=== PATIENT | male | born 1955 | race African-American/Black ===

== ENCOUNTER 2020-03-23 09:20 | Inpatient (IN) | payer BC, MEDICARE, OTHER ==
[~2020-03-23] VITALS: Ht 180.3 cm; Wt 109.0 kg
[2020-03-23] MEDS ORDERED: HYDROmorphone 2 MG/ML, 1ML IVPush PRN (09:30)
[2020-03-23] MEDS ORDERED: SODIUM CHLORIDE FLUSH 10ML SYR IVF ONE (09:30)
[2020-03-23] MEDS ORDERED: ONDANSETRON 2MG/ML, 2ML IVPush ONE (09:30)
[2020-03-23] MEDS ORDERED: SODIUM CHLORIDE 0.9% 1,000ML IVBOLUS ONE (09:30)
[2020-03-23] MEDS ORDERED: ONDANSETRON 2MG/ML, 2ML ONE (09:49)
[2020-03-23] MEDS ORDERED: HYDROmorphone 1 MG/ML, 1ML INJ ONE (09:49)
--- NOTE | 2020-03-23 09:59 | NUR ---
Pt c/o RLQ pain since Sat. Denies N/V/D. Unable to eat or drink. Appears dehydrtaed. Elevated temp, tachycardic. PIV started. Labs sent, CX drawn, pain medication provided. Fluids infusing.
[2020-03-23 10:02] LABS: MICROSCOPIC INDICATED
[2020-03-23 10:05] LABS: BASOPHILS % (AUTO) 0 % (0-1); EOSINOPHILS % (AUTO) 0 % (1-7); LYMPHOCYTES % (AUTO) 7 % (22-44); MEAN CORPUSCULAR HEMOGLOBIN 28.8 pg (27.5-34.5); MEAN CORPUSCULAR HGB CONC 33.5 g/dL (33.2-36.2); MEAN PLATELET VOLUME 8.2 fL (7.4-10.4); MONOCYTES % (AUTO) 9 % (2-9); NEUTROPHILS % (AUTO) 83 % (42-75); PLATELET COUNT 221 x10^3/uL (130-400); RED CELL DISTRIBUTION WIDTH 14.1 % (9.4-14.8)
[2020-03-23 10:06] LABS: ALANINE AMINOTRANSFERASE 40 U/L (12-78); ALBUMIN 3.7 g/dL (3.4-5.0); ANION GAP 9 mmol/L (5-15); CALCIUM 9.1 mg/dL (8.5-10.1); CHLORIDE 105 mmol/L (98-107)
[2020-03-23 10:09] LABS: ALKALINE PHOSPHATASE 97 U/L (45-117); BILIRUBIN,TOTAL 1.2 mg/dL (0.2-1.0); CREATININE 1.59 mg/dL (0.7-1.3); TOTAL PROTEIN 8.3 g/dL (6.4-8.2)
--- NOTE | 2020-03-23 10:13 | NUR ---
Pt placed on NC @ 2L/min post Dilaudid admin for low SpO2
--- NOTE | 2020-03-23 10:15 | NUR ---
Pt to CT
[2020-03-23 10:22] LABS: MD SCAN
[2020-03-23] MEDS ORDERED: OMNIPAQUE 350 MG/ML, 100ML BOTTLE ONE (10:29)
--- NOTE | 2020-03-23 10:38 | NUR ---
Back from CT, pain improved
[2020-03-23] MEDS ORDERED: CEFTRIAXONE PMX 1GM/50ML 50 ML IVPB ONE (11:00)
[2020-03-23] MEDS: PLEASE ENTER ALLERGIES MC SCH ×2 (11:00→19:33)
[2020-03-23] MEDS ORDERED: HYDROmorphone 1 MG/ML, 1ML INJ IVPush PRN (11:00)
[2020-03-23] MEDS ORDERED: CEFTRIAXONE PMX 1GM/50ML 50 ML ONE (11:03)
--- NOTE | 2020-03-23 11:05 | NUR ---
Covid swab by ERP
--- NOTE | 2020-03-23 11:38 | NUR ---
2nd blood CX drawn, ABX infusng
--- NOTE | 2020-03-23 12:45 | NUR ---
Pt resting, no needs at this time
[2020-03-23] MEDS ORDERED: KETOROLAC 30 MG/1 ML IM PRN (13:30)
[2020-03-23] MEDS ORDERED: ONDANSETRON 2MG/ML, 2ML IVPush PRN (13:30)
[2020-03-23] MEDS ORDERED: ONDANSETRON ODT 4 MG PO PRN (13:30)
[2020-03-23] MEDS: CEFTRIAXONE PMX 2GM/50ML 50 ML IVPB SCH (13:30)
[2020-03-23] MEDS: HEPARIN 5,000 UNITS/ML, 1ML SQ SCH ×2 (13:30→17:30)
[2020-03-23] MEDS ORDERED: HEPARIN 5,000 UNITS/ML, 1ML ONE (14:03)
[2020-03-23] MEDS ORDERED: CEFTRIAXONE PMX 2GM/50ML 0 ML ONE (14:03)
--- NOTE | 2020-03-23 14:09 | NUR ---
Pt resting, no needs at this time. Updated on POC.
[2020-03-23 17:01] VITALS: BP 147/83
[2020-03-23] MEDS ORDERED: CEFTRIAXONE PMX 1GM/50ML 50 ML IV ONE (17:30)
[2020-03-23] MEDS: ACETAMINOPHEN 325 MG TABLET PO PRN (17:30)
[2020-03-23] MEDS: SODIUM CHLORIDE 0.9% 1,000 ML IV SCH (17:32)
[2020-03-23 19:28] VITALS: BP 133/79
[2020-03-23] MEDS: KETOROLAC 30 MG/1 ML IVPush PRN (22:37)
[2020-03-24] VITALS (7 sets, daily range): BP systolic 114–173; BP diastolic 56–85
[2020-03-24] MEDS: HEPARIN 5,000 UNITS/ML, 1ML SQ SCH ×3 (02:05→17:47)
[2020-03-24] MEDS: PLEASE ENTER ALLERGIES MC SCH (03:00)
[2020-03-24] MEDS: ACETAMINOPHEN 325 MG TABLET PO PRN ×2 (05:02→21:03)
[2020-03-24] MEDS: SODIUM CHLORIDE 0.9% 1,000 ML IV SCH (07:38)
[2020-03-24 07:39] LABS: BASOPHILS % (AUTO) 1 % (0-1); EOSINOPHILS % (AUTO) 0 % (1-7); LYMPHOCYTES % (AUTO) 10 % (22-44); MEAN CORPUSCULAR HEMOGLOBIN 29.2 pg (27.5-34.5); MEAN CORPUSCULAR HGB CONC 33.8 g/dL (33.2-36.2); MEAN PLATELET VOLUME 8.3 fL (7.4-10.4); MONOCYTES % (AUTO) 12 % (2-9); NEUTROPHILS % (AUTO) 77 % (42-75); PLATELET COUNT 205 x10^3/uL (130-400); RED BLOOD COUNT 4.55 x10^6/uL (4.38-5.82); RED CELL DISTRIBUTION WIDTH 14.3 % (9.4-14.8)
[2020-03-24 07:47] LABS: ANION GAP 5 mmol/L (5-15); CALCIUM 8.7 mg/dL (8.5-10.1); CHLORIDE 106 mmol/L (98-107)
[2020-03-24 07:48] LABS: CREATININE 1.06 mg/dL (0.7-1.3)
[2020-03-24 08:03] LABS: MD NO
[2020-03-24] MEDS: KETOROLAC 30 MG/1 ML IVPush PRN (08:49)
[2020-03-24] MEDS: CEFTRIAXONE PMX 2GM/50ML 50 ML IVPB SCH (12:48)
[2020-03-24] MEDS ORDERED: POTASSIUM CHLORIDE 20 MEQ TAB.ER.PRT PO ONE (13:00)
[2020-03-24] MEDS: SENNOSIDES 8.6 MG TABLET PO SCH (20:57)
[2020-03-25] MEDS: HEPARIN 5,000 UNITS/ML, 1ML SQ SCH ×3 (01:20→16:57)
[2020-03-25] MEDS: SODIUM CHLORIDE 0.9% 1,000 ML IV SCH (01:20)
[2020-03-25 02:00] VITALS: BP 133/71
[2020-03-25 06:21] VITALS: BP 145/73
[2020-03-25 07:06] LABS: BASOPHILS % (AUTO) 1 % (0-1); EOSINOPHILS % (AUTO) 1 % (1-7); LYMPHOCYTES % (AUTO) 12 % (22-44); MEAN CORPUSCULAR HEMOGLOBIN 29.1 pg (27.5-34.5); MEAN CORPUSCULAR HGB CONC 33.3 g/dL (33.2-36.2); MEAN PLATELET VOLUME 8.2 fL (7.4-10.4); MONOCYTES % (AUTO) 12 % (2-9); NEUTROPHILS % (AUTO) 74 % (42-75); PLATELET COUNT 226 x10^3/uL (130-400); RED BLOOD COUNT 4.65 x10^6/uL (4.38-5.82); RED CELL DISTRIBUTION WIDTH 14.5 % (9.4-14.8)
[2020-03-25 07:14] LABS: ANION GAP 7 mmol/L (5-15); CALCIUM 8.7 mg/dL (8.5-10.1); CHLORIDE 103 mmol/L (98-107)
[2020-03-25 07:16] LABS: CREATININE 1.01 mg/dL (0.7-1.3)
[2020-03-25 07:21] LABS: MD NO
[2020-03-25] MEDS: ACETAMINOPHEN 325 MG TABLET PO PRN ×2 (09:26→21:10)
[2020-03-25 12:15] LABS: BILIRUBIN, DIRECT 0.3 mg/dL (0.1-0.2)
[2020-03-25 12:17] LABS: BILIRUBIN,INDIRECT 0.3 mg/dL (0.0-2.0); BILIRUBIN,TOTAL 0.6 mg/dL (0.2-1.0); TOTAL PROTEIN 7.8 g/dL (6.4-8.2)
[2020-03-25 13:00] VITALS: BP 152/73
[2020-03-25] MEDS: AZITHROMYCIN 500 MG TABLET PO SCH (13:00)
[2020-03-25] MEDS: CEFTRIAXONE PMX 2GM/50ML 50 ML IVPB SCH (13:01)
[2020-03-25 20:32] VITALS: BP 148/67
[2020-03-25] MEDS: SENNOSIDES 8.6 MG TABLET PO SCH (21:10)
[2020-03-26 02:00] VITALS: BP 147/63
[2020-03-26] MEDS: HEPARIN 5,000 UNITS/ML, 1ML SQ SCH ×3 (02:06→18:16)
[2020-03-26 06:17] LABS: BASOPHILS % (AUTO) 0 % (0-1); EOSINOPHILS % (AUTO) 0 % (1-7); LYMPHOCYTES % (AUTO) 8 % (22-44); MEAN CORPUSCULAR HEMOGLOBIN 28.9 pg (27.5-34.5); MEAN CORPUSCULAR HGB CONC 34.1 g/dL (33.2-36.2); MEAN PLATELET VOLUME 7.9 fL (7.4-10.4); MONOCYTES % (AUTO) 12 % (2-9); NEUTROPHILS % (AUTO) 80 % (42-75); PLATELET COUNT 239 x10^3/uL (130-400); RED BLOOD COUNT 4.64 x10^6/uL (4.38-5.82); RED CELL DISTRIBUTION WIDTH 13.7 % (9.4-14.8)
[2020-03-26 06:24] LABS: CALCIUM 8.8 mg/dL (8.5-10.1); CHLORIDE 103 mmol/L (98-107)
[2020-03-26 06:30] LABS: ALANINE AMINOTRANSFERASE 93 U/L (12-78); ALKALINE PHOSPHATASE 171 U/L (45-117); ANION GAP 8 mmol/L (5-15); BILIRUBIN,TOTAL 0.8 mg/dL (0.2-1.0); CREATININE 1.16 mg/dL (0.7-1.3); TOTAL PROTEIN 7.8 g/dL (6.4-8.2)
[2020-03-26 06:31] LABS: MD NO
[2020-03-26 06:53] VITALS: BP 125/63
[2020-03-26] MEDS: ACETAMINOPHEN 325 MG TABLET PO PRN (07:02)
[2020-03-26] MEDS: AZITHROMYCIN 500 MG TABLET PO SCH (09:12)
[2020-03-26 12:51] VITALS: BP 121/70
[2020-03-26] MEDS: CEFTRIAXONE PMX 2GM/50ML 50 ML IVPB SCH (14:28)
[2020-03-26 19:19] VITALS: BP 137/71
[2020-03-26] MEDS: SENNOSIDES 8.6 MG TABLET PO SCH (21:14)
[2020-03-27 00:20] VITALS: BP 133/72
[2020-03-27] MEDS: HEPARIN 5,000 UNITS/ML, 1ML SQ SCH ×2 (01:34→08:40)
[2020-03-27 05:07] LABS: ALBUMIN 2.8 g/dL (3.4-5.0); ANION GAP 10 mmol/L (5-15); CALCIUM 8.8 mg/dL (8.5-10.1); CHLORIDE 102 mmol/L (98-107)
[2020-03-27 05:08] LABS: BASOPHILS % (AUTO) 0 % (0-1); EOSINOPHILS % (AUTO) 2 % (1-7); LYMPHOCYTES % (AUTO) 15 % (22-44); MEAN CORPUSCULAR HEMOGLOBIN 29.1 pg (27.5-34.5); MEAN CORPUSCULAR HGB CONC 33.6 g/dL (33.2-36.2); MEAN PLATELET VOLUME 8.1 fL (7.4-10.4); MONOCYTES % (AUTO) 13 % (2-9); NEUTROPHILS % (AUTO) 70 % (42-75); PLATELET COUNT 265 x10^3/uL (130-400); RED BLOOD COUNT 4.53 x10^6/uL (4.38-5.82)
[2020-03-27 05:10] LABS: ALANINE AMINOTRANSFERASE 80 U/L (12-78); ALKALINE PHOSPHATASE 163 U/L (45-117); BILIRUBIN,TOTAL 0.5 mg/dL (0.2-1.0); CREATININE 1.02 mg/dL (0.7-1.3); TOTAL PROTEIN 7.7 g/dL (6.4-8.2)
[2020-03-27 05:12] LABS: MD NO
[2020-03-27 07:07] VITALS: BP 130/79
[2020-03-27] MEDS: AZITHROMYCIN 500 MG TABLET PO SCH (08:40)
[2020-03-27] MEDS ORDERED: AZIT500T10 PO (09:03)
[2020-03-27] MEDS ORDERED: AMOX500T PO (09:03)
[2020-03-27] MEDS ORDERED: FLU VACC QS2020-21(6MOS UP)/PF 60MCG/0.5 ML SYR IM-VACC ONE (11:00)
== END 2020-03-27 11:45 | disposition home or self-care (01) | DRG 871 ==
LOC: ED 10:34 → EDIP 12:48 → 4WST 17:11 → DCLOUNGE 03-27 11:30
PROVIDERS: ADMIT Internal Medicine; ATTEND Family Medicine
DX: A41.9 Sepsis, unspecified organism (principal); J15.9 Unspecified bacterial pneumonia; N17.0 Acute kidney failure with tubular necrosis; E87.1 Hypo-osmolality and hyponatremia; E66.9 Obesity, unspecified; E87.6 Hypokalemia; I10 Essential (primary) hypertension; Z20.828 Contact with and (suspected) exposure to other viral communicable diseases; R31.29 Other microscopic hematuria; R74.01 Elevation of levels of liver transaminase levels; K76.0 Fatty (change of) liver, not elsewhere classified; Z68.33 Body mass index [BMI] 33.0-33.9, adult; Z23 Encounter for immunization
CPT/HCPCS: 36415; 74177; 76700; 80048; 80053; 80074; 80076; 81001; 83605; 83690; 83735; 84145; 85025; 87040; 87086; 87635; 90686; 96361; 96365; 96375; 99285; G0378; J0696; J1644; J1885; J2405; Q9967; J7030